=== PATIENT | female | born 1985 | race African-American/Black ===

== ENCOUNTER 2016-10-05 10:31 | Emergency (ER) | payer MEDICARE, MEDICAID ==
[~2016-10-05] VITALS: Ht 157.5 cm; Wt 59.0 kg
[2016-10-05 13:10] VITALS: BP 108/66
[2016-10-05] MEDS ORDERED: HYDROCODONE/ACETAMINOPHEN 5/325MG TABLET PO ONE (13:15)
[2016-10-05] MEDS ORDERED: SILVER SULFADIAZINE 1% CREAM 25GM TOP ONE (13:15)
[2016-10-05] MEDS ORDERED: ACETAMINOPHEN 325MG TABLET PO ONE (13:45)
== END 2016-10-05 19:16 | disposition home or self-care (01) ==
LOC: ER 18:03
DX: O26.891 Other specified pregnancy related conditions, first trimester (principal); T78.49XA Other allergy, initial encounter; S00.81XA Abrasion of other part of head, initial encounter; Z3A.00 Weeks of gestation of pregnancy not specified; X58.XXXA Exposure to other specified factors, initial encounter; Y93.89 Activity, other specified; Y92.018 Other place in single-family (private) house as the place of occurrence of the external cause
CPT/HCPCS: 81025; 99283

== ENCOUNTER 2016-11-22 10:51 | Emergency (ER) | payer MEDICARE, MEDICAID ==
[~2016-11-22] VITALS: Ht 157.5 cm; Wt 62.0 kg
[2016-11-22 11:52] LABS: BASOPHILS % 0.8 % (0.0-2.0); EOSINOPHILS % 3.8 % (0.0-5.0); HEMATOCRIT. 36.7 % (36.0-48.0); HEMOGLOBIN. 12.5 g/dL (12.0-16.0); LYMPHOCYTES % 38.5 % (20.0-50.0); MEAN CORPUSCULAR HEMOGLOBIN 30.5 pg (28.0-32.0); MEAN CORPUSCULAR VOLUME 89.2 fL (81.0-99.0); MONOCYTES % 8.3 % (2.0-8.0); NEUTROPHILS % 48.6 % (40.0-76.0); PLATELET 226 x1000/uL (130-400); RED BLOOD CELL COUNT 4.12 mill/uL (4.2-5.4); RED CELL DISTRIBUTION WIDTH 13.4 % (11.6-14.6)
[2016-11-22 11:53] LABS: CLARITY URINE CLEAR (CLEAR); COLOR URINE YELLOW (YELLOW); GLUCOSE URINE NEGATIVE (NEGATIVE); KETONES URINE NEGATIVE (NEGATIVE); LEUKOCYTE ESTERASE URINE 2+ (NEGATIVE); NITRITE URINE NEGATIVE (NEGATIVE); OCCULT BLOOD URINE 3+ (NEGATIVE); PROTEIN URINE 2+ (NEGATIVE); SPECIFIC GRAVITY URINE 1.025 (1.005-1.030)
[2016-11-22 11:57] LABS: CHLORIDE 107 mEq/L (98-107)
[2016-11-22] MEDS ORDERED: ONDANSETRON 4MG ODT PO ONE (12:00)
[2016-11-22 12:08] LABS: CARBON DIOXIDE 25 mEq/L (21-32)
[2016-11-22 12:12] LABS: *AMPHETAMINES SCREEN URINE NEGATIVE (NEGATIVE); *BARBITURATES SCREEN URINE NEGATIVE (NEGATIVE); *BENZODIAZEPINES SCREEN URINE NEGATIVE (NEGATIVE); *COCAINE SCREEN URINE NEGATIVE (NEGATIVE); CANNABINOID URINE SCREEN NEGATIVE (NEGATIVE); METHADONE URINE SCREEN NEGATIVE (NEGATIVE); OPIATES URINE SCREEN NEGATIVE (NEGATIVE); PHENCYCLIDINE URINE SCREEN NEGATIVE (NEGATIVE)
[2016-11-22 12:20] LABS: B-HCG QUANTITATIVE 34908 mIU/mL (<3)
[2016-11-22 14:35] VITALS: BP 109/69
== END 2016-11-22 14:50 | disposition home or self-care (01) ==
LOC: ER 12:36
DX: O03.9 Complete or unspecified spontaneous abortion without complication (principal); O34.81 Maternal care for other abnormalities of pelvic organs, first trimester; N83.201 Unspecified ovarian cyst, right side; Z3A.01 Less than 8 weeks gestation of pregnancy
CPT/HCPCS: 36415; 76801; 76817; 80048; 80305; 81001; 84702; 85025; 86850; 86900; 86901; 99285; Q0162

== ENCOUNTER 2018-09-22 15:51 | Emergency (ER) | payer MEDICARE, MEDICAID ==
[~2018-09-22] VITALS: Ht 157.5 cm; Wt 70.0 kg
[2018-09-22 20:28] VITALS: BP 102/60
== END 2018-09-22 23:55 | disposition left against medical advice (07) ==
LOC: ER 15:51
DX: R51 Headache (principal); Z53.21 Procedure and treatment not carried out due to patient leaving prior to being seen by health care provider
CPT/HCPCS: 81025